=== PATIENT | female | born 1945 | race Caucasian/White ===

== ENCOUNTER → 2022-09-12 | Outpatient (CLI) | payer MEDICARE, OTHER | END | disposition home or self-care (01) | LOC: RESCLI 14:42 | PROVIDERS: ATTEND Internal Medicine | DX: A31.0 Pulmonary mycobacterial infection (principal); H35.30 Unspecified macular degeneration; E55.9 Vitamin D deficiency, unspecified; E61.1 Iron deficiency; Z72.89 Other problems related to lifestyle; Z98.890 Other specified postprocedural states; Z79.899 Other long term (current) drug therapy ==